=== PATIENT | female | born 1945 | race Two or more races ===

== ENCOUNTER 2022-03-03 12:15 | Inpatient (IN) | payer OTHER ==
[~2022-03-03] VITALS: Ht 154.9 cm; Wt 70.8 kg
[2022-03-03] MEDS ORDERED: VASOTEC10 MG PO (15:01)
[2022-03-03] MEDS ORDERED: DEPAKOTE ER500 MG PO (15:02)
[2022-03-03] MEDS ORDERED: NAMENDA10 MG PO (15:02)
[2022-03-03] MEDS ORDERED: ARICEPT10 MG PO (15:03)
[2022-03-03] MEDS ORDERED: FOLIC AC PO (15:03)
[2022-03-03] MEDS ORDERED: LIPITOR20 MG PO (15:04)
[2022-03-03] MEDS ORDERED: CLONAZEPAM1 MG PO (15:04)
[2022-03-03] MEDS ORDERED: RESTORIL PO (15:04)
[2022-03-03] MEDS ORDERED: SYNTHROID50 MCG PO (15:05)
== END 2022-03-06 14:29 | disposition home or self-care (01) | DRG 741 ==
LOC: OB/GYN 03-04 06:46 → O/R 03-04 06:46 → LDR 03-04 12:15 → OB/GYN 03-04 14:02 → LDR 03-04 17:45 → OB/GYN 03-04 19:12
PROVIDERS: ADMIT Specialist; ATTEND Specialist
PROC: 0UT70ZZ Resection of Bilateral Fallopian Tubes, Open Approach (ICD-10-PCS; 2022-03-04)
PROC: 0UT20ZZ Resection of Bilateral Ovaries, Open Approach (ICD-10-PCS; 2022-03-04)
PROC: 07BC0ZZ Excision of Pelvis Lymphatic, Open Approach (ICD-10-PCS; 2022-03-04)
PROC: 0UT90ZZ Resection of Uterus, Open Approach (ICD-10-PCS; principal; 2022-03-04 17:45)
PROC: 3E1M38Z Irrigation of Peritoneal Cavity using Irrigating Substance, Percutaneous Approach (ICD-10-PCS; 2022-03-05)
DX: C54.1 Malignant neoplasm of endometrium (principal); Z20.822 Contact with and (suspected) exposure to COVID-19; N83.291 Other ovarian cyst, right side; N83.292 Other ovarian cyst, left side; N72 Inflammatory disease of cervix uteri

== ENCOUNTER 2022-03-09 23:45 | Inpatient (IN) | payer OTHER ==
[~2022-03-09] VITALS: Ht 157.5 cm; Wt 70.3 kg
[~2022-03-09 23:45] MED LIST: ARICEPT10 MG PO; CLONAZEPAM1 MG PO; DEPAKOTE ER500 MG PO; FOLIC AC PO; LIPITOR20 MG PO; NAMENDA10 MG PO; RESTORIL PO; SYNTHROID50 MCG PO; VASOTEC10 MG PO
--- NOTE | 2022-03-09 23:52 | NUR ---
PACIENTE TRAIDA DE TRANFER CON PARAMEDICOS, [facility]OR [facility] PACIENTE SE LE REALIZA EKG VITALES Y SE UBICA EN AREA DE OBSERVACION.
--- NOTE | 2022-03-09 23:56 | NUR ---
SE NOTIFICAN ABG A SAMUEL DE TERAPIA.
--- NOTE | 2022-03-10 00:03 | NUR ---
PACIENTE AL MOMENTO DEL TRIAGE SE OBSERVA CON DUMONT.
--- NOTE | 2022-03-10 00:56 | NUR ---
PACIENTE ALERTA Y ORIENTA EN PERSONA. SE ORIENTA A PACIENTE Y FAMILIAR SOBRE TX Y PROCEDIMIENTO A REALIZAR Y REFIRIO ENTENDER. SE REALIZA MUESTRAS DE LABORATORIO BAJO MEDIDAS ASEPTICAS. SE CANALIZA X2 EN ANTEBRAZO EZE. SE MANTIENE BAJO OBSERVACION POR CAMBIOS SIGNIFICATIVOS. SE CONECTA A MONITOR CARDIACO. PACIENTE ELIMINANDO ORINA POR SONDA URINARIA COLOR ANARANJADO.
--- NOTE | 2022-03-10 02:17 | NUR ---
SE REALIZAN MUESTRAS DE WILLIAN CULTIVOS BAJO MEDIDAS ESTERILES.
--- NOTE | 2022-03-10 02:35 | NUR ---
SE REALIZA ADMINISTRACION DE MEDICAMENTOS POR ORDEN MEDICA, SE ORIENTA A FAMILIAR DE PACIENTE SOBRE USO Y EFECTOS DE LOS MEDICAMENTOS A SER ADMINISTRADOS.
--- NOTE | 2022-03-10 07:27 | NUR ---
SE RECIBE PTE FEMENINA DE 77 AN[address].PTE ALERTA,ESTABLE Y ORIENTADA.PTE SE MANTIENE EN LA ESPERA.DEL CT Y DE LA CONSULTA.
[2022-03-11] MEDS ORDERED: FOLIC ACID1 MG (08:57)
[2022-03-11] MEDS ORDERED: CITALOPRAM HBR20 MG (08:57)
[2022-03-11] MEDS ORDERED: OLANZAPINE5 MG (08:57)
[2022-03-11] MEDS ORDERED: CARBIDOPA-LEVO1 EA10 (08:57)
[2022-03-11] MEDS ORDERED: RESTORIL30 MG (08:58)
== END 2022-03-15 17:22 | disposition home or self-care (01) | DRG 306 ==
LOC: ER 23:45 → MEDJ 03-10 11:09 → SEC-K 03-10 11:09 → MEDJ 03-10 11:15
PROVIDERS: ADMIT Internal Medicine; ATTEND Internal Medicine
PROC: 4A12X4Z Monitoring of Cardiac Electrical Activity, External Approach (ICD-10-PCS; principal; 2022-03-10)
PROC: BB24ZZZ Computerized Tomography (CT Scan) of Bilateral Lungs (ICD-10-PCS; 2022-03-10)
PROC: B246ZZZ Ultrasonography of Right and Left Heart (ICD-10-PCS; 2022-03-10)
PROC: 3E0F7GC Introduction of Other Therapeutic Substance into Respiratory Tract, Via Natural or Artificial Opening (ICD-10-PCS; 2022-03-11)
DX: I35.0 Nonrheumatic aortic (valve) stenosis (principal); J18.9 Pneumonia, unspecified organism; J98.11 Atelectasis; C54.1 Malignant neoplasm of endometrium; G30.9 Alzheimer's disease, unspecified; F02.80 Dementia in other diseases classified elsewhere, unspecified severity, without behavioral disturbance, psychotic disturbance, mood disturbance, and anxiety; I10 Essential (primary) hypertension; F20.9 Schizophrenia, unspecified; Z20.822 Contact with and (suspected) exposure to COVID-19